=== PATIENT | female | born 1960 | race Two or more races ===

== ENCOUNTER 2017-09-02 12:01 | Day surgery (SDC) | payer OTHER ==
[2017-09-02] MEDS ORDERED: FENTAnyl 50 MCG/ML VIAL (17:08)
[2017-09-02] MEDS ORDERED: MIDAZOLAM 1 MG/ML 2 ML INJ ×3 (17:08)
== END 2017-09-02 16:34 | disposition home or self-care (01) ==
LOC: GIL 12:01
DX: Z12.11 Encounter for screening for malignant neoplasm of colon (principal); K64.8 Other hemorrhoids; K29.50 Unspecified chronic gastritis without bleeding; I10 Essential (primary) hypertension
CPT/HCPCS: 43239; 88305; 88312